=== PATIENT | female | born 1995 | race Caucasian/White ===

== ENCOUNTER 2018-02-12 07:29 | Emergency (ER) | payer SELFPAY ==
[~2018-02-12] VITALS: Ht 162.6 cm; Wt 64.9 kg
--- NOTE | 2018-02-12 07:36 | NUR ---
Patient called and no answer. Searched lobby and outside lobby area.
[2018-02-12 07:44] VITALS: BP 117/78
--- NOTE | 2018-02-12 07:51 | NUR ---
Gave report to Ellen GARDNER.
--- NOTE | 2018-02-12 07:51 | NUR ---
PT AMBULATES TO BED 7
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
--- NOTE | 2018-02-12 07:55 | NUR ---
DR HENDRICKS EVALUATING AT BEDSIDE
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
--- NOTE | 2018-02-12 08:23 | NUR ---
test positive, er made aware
--- NOTE | 2018-02-12 08:42 | NUR ---
PT TAKEN TO XRAY IN WHEELCHAIR
--- NOTE | 2018-02-12 09:03 | NUR ---
PT RETURNED FROM XRAY
[2018-02-12 09:30] VITALS: BP 112/76
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
== END 2018-02-12 09:30 | disposition home or self-care (01) ==
LOC: MED 07:29
DX: O9A.211 Injury, poisoning and certain other consequences of external causes complicating pregnancy, first trimester (principal); S00.83XA Contusion of other part of head, initial encounter; S40.022A Contusion of left upper arm, initial encounter; H11.33 Conjunctival hemorrhage, bilateral; Z3A.00 Weeks of gestation of pregnancy not specified; Y04.0XXA Assault by unarmed brawl or fight, initial encounter; Y93.89 Activity, other specified; Y99.8 Other external cause status; Y92.89 Other specified places as the place of occurrence of the external cause
CPT/HCPCS: 70110; 81025; 99284

== ENCOUNTER 2018-10-15 17:08 | Emergency (ER) | payer SELFPAY ==
[~2018-10-15] VITALS: Ht 162.6 cm; Wt 68.0 kg
[2018-10-15 17:21] VITALS: BP 106/67
--- NOTE | 2018-10-15 17:58 | NUR ---
PT AMBULATED TO ER BED 09
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
[2018-10-15] MEDS ORDERED: cefTRIAXone 250 MG in LIDOCAINE MPF 1% - 5 mL VIAL 0.9 ML IM ONE (18:10)
[2018-10-15] MEDS ORDERED: AZITHROMYCIN 250 MG TAB PO ONE (18:10)
[2018-10-15 18:29] LABS: BILIRUBIN,URINE NEGATIVE (NEGATIVE); BLOOD, URINE NEGATIVE (NEGATIVE); COLOR,URINE YELLOW (YELLOW); LEUKOCYTE ESTERASE ,URINE 1+ (NEGATIVE); NITRITE, URINE NEGATIVE (NEGATIVE); UGLUCOSE NEGATIVE (NEGATIVE)
[2018-10-15 18:40] LABS: APPEARANCE,URINE HAZY (CLEAR); RBC,URINE 0-5 /HPF (0-5); WBC,URINE TOO MANY TO COUNT /HPF (0-5)
[2018-10-15 19:06] VITALS: BP 112/72
--- NOTE | 2018-10-15 19:06 | NUR ---
PATIENT PROVIDED 2 CLINICS FOR STD TESTINGS. PROVIDED BY [facility]
[2018-10-18 09:33] LABS: CHLAMYDIA TRACHOMATIS AMP DNA POSITIVE (NEGATIVE)
--- NOTE | 2018-10-18 16:56 | NUR ---
CALLED LEFT VOICEMAIL. REFERRED TO INFECTIOUS CONTROL NURSE. FAXED TO [facility]
== END 2018-10-15 19:06 | disposition home or self-care (01) ==
LOC: MED 17:08
DX: Z11.3 Encounter for screening for infections with a predominantly sexual mode of transmission (principal)
CPT/HCPCS: 36415; 81001; 81025; 87086; 96372; 99283; J0696; J2001; 87491

== ENCOUNTER 2023-07-15 11:30 | Emergency (ER) | payer MEDICAID ==
[~2023-07-15] VITALS: Ht 162.6 cm; Wt 72.6 kg
[2023-07-15 11:33] VITALS: BP 139/70; PULSE 96; RESP 16; TEMP 97.4; O2SAT 100
[2023-07-15 12:12] VITALS: BP 130/70; PULSE 98; RESP 16; TEMP 97.4; O2SAT 100
== END 2023-07-15 12:12 ==
LOC: MED 11:30
DX: F10.129 Alcohol abuse with intoxication, unspecified (principal); Z02.89 Encounter for other administrative examinations; Y90.9 Presence of alcohol in blood, level not specified
CPT/HCPCS: 99283